=== PATIENT | male | born 1950 | race Caucasian/White ===

== ENCOUNTER 2018-09-23 10:54 | Emergency (ER) | payer OTHER, MEDICARE, SELFPAY ==
[2018-09-23 10:55] VITALS: BP 160/85; PULSE 86; RESP 16; TEMP 36.3; O2SAT 95; BMI 29.5
--- NOTE | 2018-09-23 11:39 | CT_ITS ---
STUDY: CT ABDOMEN AND PELVIS WITHOUT CONTRAST REASON FOR EXAM: Male, 68 years old. Left flank pain. Hematuria. RADIATION DOSAGE (If Supplied By Facility): CTDIvol = ( 17.58 ) mGy, DLP = ( 1045.49 ) mGycm TECHNIQUE: Transaxial images were obtained from the dome of the diaphragm to the symphysis pubis without oral contrast, and without intravenous contrast. Sagittal and coronal images were reconstructed. Individualized dose optimization techniques were used for this CT. COMPARISON: None. FINDINGS: The visualized lung bases are unremarkable. The visualized portions of the heart are within normal limits. Normal liver. Normal gallbladder and extrahepatic biliary system. Normal spleen. Normal pancreas. Normal bilateral adrenal glands. Normal right kidney. There is a mild degree of left hydronephrosis and left hydroureter due to a 3 mm calculus in the midportion of the left ureter. There is also evidence of left perinephric stranding. There is a small hiatal hernia. Normal small intestine. There are multiple colonic diverticula consistent with diverticulosis. The appendix is visualized and appears normal. Normal abdominal aorta. Normal inferior vena cava. There is borderline retroperitoneal lymphadenopathy with enlarged nodes no greater than 10mm in the short axis diameter. Normal urinary bladder. Normal abdominal wall. There are degenerative changes of the visualized lumbar spine. CT/Abdomen/Pelvis without Cont IMPRESSION: 3 mm calculus in the midportion of the left ureter causing left-sided hydronephrosis and hydroureter and left perinephric stranding. Electronically Signed: Douglas Brooks, at 12:51 EST , Service support ,
--- NOTE | 2018-09-23 11:56 | ED.VIS.GEN ---
History of Present Illness Chief Complaint: Flank Pain Informant: Patient Onset: Today - 2-3 hrs Context: Sudden Onset Timing: Continuous Quality: ache, dull. colicky. Location: left flank, radiating into LLQ and groin Current Severity: Mild Maximum Severity: Moderate Worsened by: nothing Relieved by: nothing Associated Symptoms: nausea. dark urine. Narrative: Never had this before. Spontaneous onset of discomfort while he was doing nothing in particular. No history of kidney stones. No lightheadedness or syncope. Back pain started first, then started feeling achy in his left abdomen as well. - Past Medical History (1) Hypertension Status: Chronic (2) Benign prostatic hyperplasia Status: Chronic Past Medical History - Allergies and Home Meds Allergies/Adverse Reactions: Allergies Sulfa (Sulfonamide Antibiotics) Allergy (Verified 09/23/18 10:57) Rash Primary Care Physician: Raghav Merlos,Out of [Primary Care Provider] - Surgical History: no surgical history Lives: Spouse/ Significant Other Smoking Status: Never smoker Review of Systems General: Denies: Chills, Fever, Sweats Eyes: Denies: Visual changes - bilaterally, Diplopia ENT: Denies: Rhinorrhea, Sore throat Cardiovascular: Denies: Chest pain, Palpitations Respiratory: Denies: Dyspnea, Cough, Dyspnea on exertion Gastrointestinal: Reports: Abdominal pain, Nausea. Denies: Vomiting, Diarrhea, Melena, Hematochezia Genitourinary: Denies: Dysuria, Hematuria, Frequency Musculoskeletal: Reports: Back pain. Denies: Extremity Pain Skin: Denies: Rash, Wounds Neurological: Denies: Headache, Weakness, Numbness Physical Exam Vital Signs/Narrative: Vital Signs Temp Pulse Resp BP Pulse Ox 09/23/18 10:55 97.3 F L 86 16 160/85 H 95 Inital Vital Signs reviewed: Yes General: Well nourished, Well developed, No Acute Distress - Well-appearing, NAD Head: Normocephalic, Atraumatic Eyes: Perrl, EOMI ENT: Moist mucous membranes, No rhinorrhea Neck: Supple, Nontender Cardiovascular: Regular rate, Regular rhythm, No murmurs Respiratory: No distress, CTA bilaterally, Chest nontender Abdomen: Soft, Nondistended, Normal bowel sounds, Tender - Mild, left lower quadrant and left mid abdomen Back: Normal Inspection, CVA tenderness - Mild left only, - - No rash Extremities: Nontender, No edema Skin: Normal color, No rash. Negative for: No Trauma Neurological: Alert, Oriented x3, Cranial nerves II-XII grossly intact, Normal Strength, Normal Sensation, Normal Gait Psychological: Normal affect, Normal Mood Diagnostic/Tx/Re-eval Impressions Abdomen/Pelvis CT 09/23/18 11:39 IMPRESSION: 3 mm calculus in the midportion of the left ureter causing left-sided hydronephrosis and hydroureter and left perinephric stranding. Electronically Signed: Douglas Gamboaenoch, at 12:51 EST , Service support , 09/23/18 11:39 Abdomen/Pelvis without Cont [CT] Stat Laboratory Results 09/23/18 12:25 Urine Color Angela Urine Clarity Cloudy Urine pH 5.0 Ur Specific Williamson 1.020 Urine Protein 100 H Urine Glucose (UA) Normal Urine Ketones 5 H Urine Occult Blood 250 H Urine Nitrite Positive H Urine Bilirubin Negative Urine Urobilinogen Normal Ur Leukocyte Esterase 25 H Urine RBC > 100 SEEN Urine WBC 0-5 SEEN Ur Squamous Epith Cells 0-5 SEEN Amorphous Sediment 2+ Urine Bacteria 2+ Urine Mucus 0 SEEN - Medical Decision Making CT shows a 3 mm mid ureteral stone, no sign of aortic acute pathology/catastrophe. He was reassured. No signs of obvious infection although nitrite was positive on the urinalysis. Culture will be added, and although he does not have any significant pyuria compared with the significant amount of microscopic hematuria present, I will place him on antibiotic since I do not have a culture back. He declined any analgesics initially but then agreed to take ibuprofen and Zofran. Will give him prescriptions to use as needed, expectant management indicated. Sent home with strainers and follow-up if he does not pass the stone within a week or so. We also discussed reasons to return to the ER. ED Disposition - Plan for ED Patient: Disposition: Home or Assisted Living Diagnosis: Ureterolithiasis, Renal colic on left side Instructions: ED Stone Renal W Colic Prescriptions: Hydrocodone Bitart/Apap 5-325 [[facility] 5MG-325MG] 1 tab PO Q4H PRN PRN 2 Days #10 tab PRN Reason: Pain Ondansetron [Zofran] 8 mg PO Q8H PRN PRN #12 tab PRN Reason: Nausea Cephalexin [Keflex] 500 mg PO TID #21 cap Referrals: Sterling Parker MD [STAFF PHYSICIAN] - 1 Week if not improving
[2018-09-23] MEDS: Ondansetron ODT 4 MG Tablet 8 MG PO (12:21)
[2018-09-23 12:33] LABS: Mucous, Urine 0 SEEN /hpf (<or=2+)
[2018-09-23 12:37] LABS: Color, Urine Amber (Yellow); Glucose, Dipstick Normal (Normal); Ketone-Dipstick 5 mg/dl (Negative); Leukocyte Esterase-Dipstick 25 /ul (Negative); Nitrite-Dipstick Positive (Negative); Occult Blood-Urine 250 /ul (Negative); Protein-Dipstick 100 mg/dl (Negative); Urine Bilirubin Dipstick Negative (Negative); Urine Clarity Cloudy (Clear); Urine Urobilinogen Normal (Normal)
[2018-09-23] MEDS: Ibuprofen 600 MG Tablet PO (12:45)
[2018-09-23 12:49] LABS: Red Blood Cells-Urine > 100 SEEN /hpf (0-5)
[2018-09-23 12:53] LABS: Amorphous Sediment 2+; Bacteria 2+ /hpf (None Seen); Squamous Epithelial Cells - UA 0-5 SEEN /hpf (0-5); White Blood Cells 0-5 SEEN /hpf (0-5)
[2018-09-23 13:16] VITALS: BP 137/79; PULSE 74; RESP 16; O2SAT 96
[2018-09-23 13:38] VITALS: BP 137/79; PULSE 74; RESP 16; O2SAT 96
== END 2018-09-23 13:56 | disposition home or self-care (01) ==
PROVIDERS: Emergency Provider Emergency Medicine
DX: N13.2 Hydronephrosis with renal and ureteral calculous obstruction (principal); I10 Essential (primary) hypertension; N40.0 Benign prostatic hyperplasia without lower urinary tract symptoms
CPT/HCPCS: 74176; 81001; 87086; 87088; 99283

== ENCOUNTER 2018-10-24 20:39 | Emergency (ER) | payer OTHER, MEDICARE, SELFPAY ==
[2018-10-24 20:39] VITALS: BP 139/92; PULSE 84; RESP 16; TEMP 37.1; O2SAT 94; BMI 29.7
--- NOTE | 2018-10-24 20:50 | RAD_ITS ---
STUDY: X-RAY - RIGHT KNEE REASON FOR EXAM: Male, 68 years old. Knee pain TECHNIQUE: 3 view(s) of the knee. COMPARISON: None. FINDINGS: There are tricompartmental osteophytes. There are likely small osteochondral bony lesions within the lateral compartment of the knee adjacent to the intercondylar notch. There is mild soft tissue edema. There is mild osteopenia. RAD/Knee 3 Views IMPRESSION: Tricompartmental osteoarthrosis Likely small osteochondral lesions within the lateral compartment of the knee adjacent to the intercondylar notch, further evaluation with CT could be performed Electronically Signed: Cal Lujan, at 21:41 EDT Tel , Service support ,
--- NOTE | 2018-10-24 21:36 | ED.DCSUM_ITS ---
History of Present Illness Chief Complaint: Lower Extremity Injury Detail of Chief Complaint: Medial right knee pain Informant: Patient Onset: Today Context: Sudden Onset Timing: Continuous Quality: Pain medial aspect right knee status post injury Location: Right medial knee Current Severity: Mild Maximum Severity: Moderate Worsened by: Extension and ambulating Relieved by: Rest Associated Symptoms: No paresthesia, anesthesia motor weakness. Narrative: Patient presents with injury to right knee. He had a twisting mechanism injury/near fall. He complains of pain medially. He denies prior injury. He reports pain with movement and ambulation. He denies paresthesia, anesthesia motors. Prior similar symptoms: No Recent Illness/Hospitalization: No - Past Medical History (1) Benign prostatic hyperplasia Status: Chronic (2) Hypertension Status: Chronic Past Medical History - Allergies and Home Meds Allergies/Adverse Reactions: Allergies Sulfa (Sulfonamide Antibiotics) Allergy (Verified 10/24/18 20:42) Rash Primary Care Physician: Raghav Merlos,Out of [Primary Care Provider] - Prior records reviewed: Yes Surgical History: no surgical history Lives: Spouse/ Significant Other Smoking Status: Never smoker Alcohol: None Review of Systems Musculoskeletal: Reports: Extremity Pain - Medial aspect of right knee. Denies: Myalgias, Arthralgias, Neck pain, Back pain, Swelling Skin: Denies: Rash, Abscess Hematologic: Denies: Easy bruising, Easy bleeding Physical Exam Vital Signs/Narrative: Vital Signs Temp Pulse Resp BP Pulse Ox 10/24/18 20:39 98.7 F 84 16 139/92 H 94 Inital Vital Signs reviewed: Yes General: Well nourished, Well developed, No Acute Distress Head: Normocephalic, Atraumatic Eyes: Perrl, EOMI Cardiovascular: Regular rate, Regular rhythm, No murmurs Respiratory: No distress Extremities: No edema, Tenderness - Medial joint tenderness. Varus and valgus stress testing cause him discomfort medially. There is no laxity. Ellen's test is negative. Modified Giovanna's test causes pain medial posterior fossa. He is able to extend 180 degrees. Is able to flex to 100 degrees before experiencing discomfort.. Negative for: Nontender Skin: Normal color, No rash Neurological: Alert, Oriented x3, Cranial nerves II-XII grossly intact, Normal Strength, Normal Sensation. Negative for: Normal Gait Psychological: Normal affect, Normal Mood Diagnostic/Tx/Re-eval Chest X-Ray - ED: Read by ED Physician Three-view x-ray of the right knee was obtained with no evidence of subluxation or dislocation of the patella. There is no fracture noted. There is no effusion noted. There is a floating free body posteriorly noted. - Medical Decision Making Based on patient's history and physical exam suspect medial meniscal injury. Will treat with pain medicine and crutches. He was referred to Dr. Jeffrey Franco who is on-call for orthopedics since he has not seen orthopedist in the past. ED Disposition - Plan for ED Patient: Disposition: Home or Assisted Living Diagnosis: Acute medial meniscus tear of right knee Instructions: ED Meniscal Injury Knee Poss Prescriptions: Hydrocodone Bitart/Apap 5-325 [[place] 5MG-325MG] 1 tab PO Q6H PRN PRN 3 Days #10 tab PRN Reason: Pain Referrals: [facility] Doctor,Out of [Primary Care Provider] - Jeffrey Franco DO [STAFF PHYSICIAN] - 5-7 Days
[2018-10-24 22:05] VITALS: BP 149/87; PULSE 77; RESP 16
== END 2018-10-24 22:06 | disposition home or self-care (01) ==
LOC: ED 21:55
PROVIDERS: Emergency Provider Emergency Medicine
DX: S83.241A Other tear of medial meniscus, current injury, right knee, initial encounter (principal); X50.1XXA Overexertion from prolonged static or awkward postures, initial encounter; Y93.9 Activity, unspecified; Y92.9 Unspecified place or not applicable; I10 Essential (primary) hypertension; N40.0 Benign prostatic hyperplasia without lower urinary tract symptoms; Z79.82 Long term (current) use of aspirin; Z79.899 Other long term (current) drug therapy
CPT/HCPCS: 73562; 99283

== ENCOUNTER → 2022-10-12 | Outpatient (CLI) | payer OTHER, SELFPAY | END | disposition home or self-care (01) | PROVIDERS: PCP Family Medicine; Referring Provider Family Medicine; Visit Provider Family Medicine | DX: R31.9 Hematuria, unspecified (principal) | CPT/HCPCS: 87077; 87086; 87088; 87186 ==

== ENCOUNTER → 2022-11-25 | Outpatient (CLI) | payer MEDICARE, SELFPAY ==
--- NOTE | 2022-11-25 16:34 | US_ITS ---
HISTORY: SCROTAL PAIN-RT TECHNIQUE: Realtime ultrasound of the testicles was performed with grayscale, Color Doppler and spectral Doppler analysis. 110 images. COMPARISON: None. FINDINGS: Right- TESTIS: 2 x 3.1 x 3.4 cm. Homogeneous echotexture with 2 x 3 mm and 3 x 5 mm cysts. Dilated rete testes. COLOR DOPPLER: Normal arterial flow present in the testicle with monophasic waveforms. EPIDIDYMIS: 1.8 x 1.9 x 3.5 cm . 1.7 x 2.3 x 3 cm cyst. [No focal hyperemia. EXTRATESTICULAR CONTENTS: Varicocele noted. Left- TESTIS: 1.7 x 2.9 x 4 cm. Homogeneous echotexture without focal lesion. COLOR DOPPLER: Normal arterial flow present in the testicle with monophasic waveforms. EPIDIDYMIS: 7 x 9 x 9 mm [Normal color Doppler flow pattern in the epididymis. EXTRATESTICULAR CONTENTS: Varicocele noted. US/Testicular with Arterial Flow IMPRESSION: Vascular flow demonstrated to both testicles. Small right testicular cyst. 3 cm right epididymal cyst. Varicoceles. Electronically Signed: Meliza Nelson MD at 11:37 EDT ,
== END | disposition home or self-care (01) ==
LOC: US 16:31
PROVIDERS: PCP Family Medicine; Referring Provider Family Medicine; Visit Provider Family Medicine
DX: N50.82 Scrotal pain (principal)
CPT/HCPCS: 76870; 93976

== ENCOUNTER → 2022-12-15 | Outpatient (CLI) | payer MEDICARE, SELFPAY ==
[2022-12-15 16:46] LABS: PSA,Total - Annual Screen 0.28 ng/mL (0.00-4.00)
== END | disposition home or self-care (01) ==
LOC: LAB 15:41
PROVIDERS: PCP Family Medicine; Referring Provider Urology; Visit Provider Urology
DX: Z12.5 Encounter for screening for malignant neoplasm of prostate (principal)
CPT/HCPCS: 36415; 84153; G0103

== ENCOUNTER → 2023-07-06 | Outpatient (CLI) | payer MEDICARE, SELFPAY ==
[2023-07-06 12:12] LABS: Absolute Lymphocyte Count 1.42 X10^3/uL (0.83-4.51); Absolute Neutrophil Count 2.7 X10^3/uL (2.0-7.7); Basophil# 0.05 X10^3/uL; Eosinophil# 0.15 X10^3/uL; Eosinophils% 3.1 % (0-5); Hematocrit 45.1 % (40-54); Hemoglobin 15.6 g/dL (13.0-16.5); Lymphocyte # 1.42 X10^3/ul (0.83-4.51); Lymphocyte % 29.7 % (19-41); Mean Corp Hgb Conc 34.6 g/dL (32-36); Mean Corpuscular Hgb 33.3 pg (27.0-32.0); Mean Corpuscular Volume 96.4 fL (80-94); Mean Platelet Vol. 11.5 fl (6.2-12.0); Monocyte# 0.41 X10^3/uL; Monocyte% 8.6 % (0-10); NRBC Flagged by Analyzer 0 % (0-5); Neutrophil # 2.74 X10^3/uL (2.7-7.7); Neutrophil % 57.4 % (47-70); Platelet Count 176 K/mm3 (150-450); RBC Distribution Width SD 46.2 fl (35.1-43.9); Red Blood Count 4.68 M/mm3 (4.6-6.2); White Blood Count 4.8 K/mm3 (4.4-11.0)
[2023-07-06 12:38] LABS: Vitamin D,25 Hydroxy 34.5 ng/mL
[2023-07-06 12:42] LABS: AST(SGOT) 46 U/L (15-37); Alanine Aminotransfer ALT/SGPT 79 U/L (16-61); Albumin, Serum 3.8 g/dL (3.2-5.0); Alkaline Phosphatase 81 U/L (45-117); Anion Gap 8 (5-15); BUN 17 mg/dL (7-18); BUN/Creat Ratio 14.8 RATIO (10-20); Calcium,Total 8.9 mg/dL (8.5-10.1); Chloride 106 mmol/L (98-107); Creatinine, Serum 1.15 mg/dL (0.70-1.30); EST Glomerular Filtration Rate 66 mL/min (>60); Est Glom Filt Rate - Afr Amer 80 mL/min (>60); Glucose 112 mg/dL (74-106); Potassium 3.3 mmol/L (3.5-5.1); Protein, Total 7.8 g/dL (6.4-8.2); Sodium Level 141 mmol/L (136-145)
== END | disposition home or self-care (01) ==
LOC: BFHLAB 10:17
PROVIDERS: PCP Family Medicine; Visit Provider Family Medicine
DX: I10 Essential (primary) hypertension (principal); R42 Dizziness and giddiness; E55.9 Vitamin D deficiency, unspecified
CPT/HCPCS: 36415; 80053; 82306; 85025

== ENCOUNTER → 2023-07-16 | Outpatient (CLI) | payer MEDICARE, SELFPAY ==
--- NOTE | 2023-07-16 10:06 | US_ITS ---
PROCEDURE: ABDOMINAL ULTRASOUND, RIGHT UPPER QUADRANT COMPARISONS: CT abdomen and pelvis 09/23/2018. CLINICAL INDICATION: ELEVATED ENZYMES TECHNIQUE: Real-time coronado-scale abdominal ultrasound. Limited color Doppler evaluation is performed. FINDINGS: Liver: Normal in size with diffusely increased echotexture. Appropriate hepatopetal flow is present in the main portal vein. Gallbladder: Normal wall thickness. No gallstones. Sonographic Kohli''s sign is absent. No pericholecystic fluid is present. Biliary Tree: Nondilated. Common bile duct measures 3 mm. Pancreas: Obscured by bowel gas. Right kidney: Normal in size and echogenicity. Prominent extrarenal pelvis as on prior CT, no hydronephrosis or stones. The right kidney measures 13.2 cm in long axis. No free fluid. US/Liver IMPRESSION: Diffuse fatty infiltration of the liver. No acute findings. Electronically Signed: Carroll Glaser MD at 18:14 EST ,
== END | disposition home or self-care (01) ==
LOC: US 10:03
PROVIDERS: PCP Family Medicine; Referring Provider Family Medicine; Visit Provider Family Medicine
DX: R74.8 Abnormal levels of other serum enzymes (principal)
CPT/HCPCS: 76705

== ENCOUNTER → 2023-11-09 | Outpatient (CLI) | payer MEDICARE, SELFPAY ==
[2023-11-09 13:11] LABS: AST(SGOT) 49 U/L (15-37); Alanine Aminotransfer ALT/SGPT 68 U/L (16-61); Albumin, Serum 3.7 g/dL (3.2-5.0); Alkaline Phosphatase 84 U/L (45-117); Bilirubin, Direct 0.22 mg/dL (0.00-0.30); Cholesterol 159 mg/dL (200); GGTP 81 U/L (15-85); Globulin 3.8 g/dL (2.2-4.2); High Density Lipoprotein 61 mg/dL; Protein, Total 7.5 g/dL (6.4-8.2); Triglycerides 117 mg/dL; Uric Acid 5.2 mg/dL (3.5-7.2); Very Low Density Lipoprotein 23 mg/dL (5-40)
== END | disposition home or self-care (01) ==
LOC: LAB.FUTURE 10:55
PROVIDERS: PCP Family Medicine; Referring Provider Family Medicine; Visit Provider Family Medicine
DX: R74.8 Abnormal levels of other serum enzymes (principal)
CPT/HCPCS: 36415; 80061; 80076; 82977; 84550

== ENCOUNTER 2024-08-19 02:20 | Emergency (ER) | payer OTHER, SELFPAY ==
[2024-08-19 02:21] VITALS: BP 146/76; PULSE 76; RESP 20; TEMP 36.4; O2SAT 97; BMI 29.5
--- NOTE | 2024-08-19 02:25 | EKG12_ITS ---
Test Reason : CP Blood Pressure : */* mmHG Vent. Rate : 68 BPM Atrial Rate : 68 BPM P-R Int : 160 ms QRS Dur : 120 ms QT Int : 426 ms P-R-T Axes : 36 0 0 degrees QTcB Int : 452 ms Normal sinus rhythm Right bundle branch block Minimal voltage criteria for LVH, may be normal variant ( R in aVL ) Abnormal ECG Confirmed by JOYCE MARTIN MD ([id number]), editor managing director CODY PALMA ([id number]) on 08/21/2024 7:06:20 AM Referred By: BB Confirmed By: JOYCE MARTIN MD
--- NOTE | 2024-08-19 02:33 | ED.VIS.CHEST ---
HPI History of Present Illness Chief Complaint: Chest Pain Informant: patient and spouse/S.O. Narrative Narrative: 74-year-old male presents about 2:30 AM for chest pain that started around 1 AM upon lying down to sleep. He states he felt like heaviness across his substernal, no radiation, no other associated symptoms such as diaphoresis, dyspnea, palpitations, nausea, near-syncope or syncope. Nonpleuritic, nonexertional. He states upon being upright the discomfort gradually resolved. He has been having off-and-on chest pain for the last several weeks, states he saw his doctor just this past day, he was started on omeprazole and took the first 1, and the patient states he was told if his chest pain ever recurs or gets worse he should go right to the emergency department, so he is here to make sure that he is okay. At the current moment he is asymptomatic and states that the chest discomfort only lasted a short time. He is a non-smoker. He states he had a stress test 5 years ago or so and it was okay. No known history of heart problems. He states his doctor told him he had a right bundle branch block, duration unknown, and he states that his doctor is trying to set him up for an MRI. [facility] Medical History (Updated 08/19/24 @ 03:[address] Andi Sher MD) Hypertension Benign prostatic hyperplasia Hearing loss, left Hearing loss, right Hypertension Cataract Home Medications ?Medication ?Instructions ?Recorded ?Last Taken ?Type allopurinol 300 mg tablet 300 mg PO DAILY 09/23/18 Unknown History aspirin 81 mg tablet,delayed 81 mg PO DAILY 09/23/18 Unknown History release (Aspir-) finasteride 5 mg tablet 5 mg PO DAILY 09/23/18 Unknown History lisinopril 20 1 tab PO DAILY 09/23/18 Unknown History mg-hydrochlorothiazide 12.5 mg tablet multivitamin (Daily Value tablet) 1 ea PO DAILY 09/23/18 Unknown History ondansetron HCl 8 mg tablet 8 mg PO Q8H PRN PRN Nausea #12 tabs 09/23/18 Unknown Rx tamsulosin 0.4 mg capsule (Flomax) 0.8 mg PO QHS 09/23/18 Unknown History vitamin B complex (Vitamins B 1 ea PO DAILY 09/23/18 Unknown History Complex capsule) Allergy/AdvReac Type Severity Reaction Status Date / Time Sulfa (Sulfonamide Allergy stomach Verified 08/19/24 02:26 Antibiotics) ache Social History Smoking Status: Never smoker ROS ROS ED Constitutional Constitutional ED: Denies chills or fever(s) Eyes Eyes: Denies change in vision or diplopia ENT ENT ED: Denies rhinorrhea or sore throat Cardiovascular Cardiovascular: Reports as per HPI and chest pain; Denies palpitations Respiratory/Chest Respiratory/Chest: Denies cough or dyspnea Gastrointestinal Gastrointestinal: Denies abdominal pain, diarrhea, nausea or vomiting Genitourinary Genitourinary ED: Denies dysuria or hematuria Musculoskeletal Musculoskeletal: Denies back pain or neck pain Integumentary Denies abscess or rash Neurologic Neurologic: Denies headache(s), paresthesias or weakness Psychiatric Psychiatric: Denies anxiety or suicidal thoughts EXAM Physical Exam Const Vital Signs: 08/19/24 02:21 08/19/24 02:25 08/19/24 02:34 Temperature 97.5 F L Temperature Source Oral Pulse Rate 76 Respiratory Rate 20 H Respiratory Effort Normal Non-Labored Blood Pressure 146/76 H Blood Pressure Mean 99 Pulse Ox 97 Oxygen Delivery Method Room Air Room Air 08/19/24 03:20 08/19/24 04:00 Temperature Temperature Source Pulse Rate 71 66 Respiratory Rate 17 17 Respiratory Effort Blood Pressure 125/76 H 120/68 Blood Pressure Mean 92 85 Pulse Ox 95 97 Oxygen Delivery Method Room Air Room Air Positive well nourished and well developed General Appearance ED: well developed and NAD HEENT Reports moist mucous membranes normocephalic and atraumatic Eyes PERRL and EOMs intact bilaterally Neck full ROM and supple Resp normal respiratory effort and clear to auscultation bilaterally Cardio regular rate, regular rhythm and no murmurs GI non-tender and non-distended Auscultation: normoactive bowel sounds Palpation: soft Back/Spine no CVA tenderness General Back: other FROM Extremity normal to inspection General Extremety ED: Negative for edema, pulses abnormal or tenderness General Extremity: Negative for edema or pulses abnormal Neuro oriented x3, CN's II-XII intact bilaterally and no sensory deficits noted Sensorium / Orientation: awake and alert Motor Exam: strength 5/5 throughout Skin no rashes or lesions noted and no wounds Heart Score History: Slightly/Non-Suspicious ECG: Nonspecific Repolarization Age: >/= 65 years Risk Factors: 1 or 2 Risk Factors Troponin: </= Normal Limit Score: 4 MDM MDM MDM Narrative Medical decision making narrative: Although I do not have an available prior EKG to compare this to, his current EKG does show a right bundle branch block and no acute injury pattern. His history is more consistent with GI etiology than it is cardiac, in my judgment. I think this is a low risk episode with regards to risk of this being unstable angina. He currently is pain-free. His initial troponin is 7, but given that he just had the episode a little over an hour prior to presentation, a second troponin 2 hours later according to this hospital's protocol is indicated. In the meantime his chest x-ray 2 views of my interpretation is normal, does not appear to show widened mediastinum or focal unilateral abnormality. He is not anemic and the rest of his blood work is unremarkable except for mild prerenal azotemia and mild hypokalemia, both incidental in my opinion. Patient is comfortable with waiting for repeat troponin. His repeat troponin came back at 7 which is identical to his initial measurement for a delta of 0. Patient remains asymptomatic with normal vital signs. Stable for discharge. Lab Data Attestation: I reviewed the patient's lab results. Labs: Laboratory Results - last 24 hr 08/19/24 08/19/24 02:25 04:26 WBC 7.0 RBC 4.62 Hgb 15.6 Hct 43.9 MCV 95.0 H MCH 33.8 H MCHC 35.5 RDW Std Deviation 45.9 H RDW Coeff of Tirso 13.2 Plt Count 166 MPV 10.6 Immature Gran % (Auto) 0.300 Neut % (Auto) 49.7 Lymph % (Auto) 36.3 Hendricks % (Auto) 9.4 Eos % (Auto) 3.3 Baso % (Auto) 1.0 Absolute Neuts (auto) 3.5 Absolute Lymphs (auto) 2.54 Nucleated RBC % 0 Sodium 140 Potassium 3.3 L Chloride 105 Carbon Dioxide 28.0 Anion Gap 7 BUN 21 H Creatinine 1.22 Estim Creat Clear Calc 66.30 Est GFR (MDRD) Af Amer 74 Est GFR (MDRD) Non-Af 61 BUN/Creatinine Ratio 17.2 Glucose 113 H Calcium 9.3 Troponin I High Sens 7 7 Radiography Diagnostic Testing: Clinical Impression(s) from Imaging Studies Chest X-Ray 08/19/24 02:40 IMPRESSION: No acute cardiopulmonary process identified. Reading Location: [facility] Rhythm Strip Rhythm Strip: Sinus Rhythm Rate: 68 Ectopy: None EKG Initial EKG: Attestation: I personally reviewed and interpreted this EKG as follows: Interpretation: Sinus Rhythm, No Acute Injury Pattern, RBBB and Non-Specific ST Changes (ant-sept) Prior EKG tracings: not available for review Prior: No Prior Discharge Plan Triage Chief Complaint: Chest Pain ED Provider: Andi Sher Dx/Rx/DC Orders Clinical Impression: Non-cardiac chest pain Instructions: ED Chest Pain, Noncardiac Prescriptions: Continued multivitamin [Daily Value] 1 EACH tablet 1 ea PO DAILY lisinopril-hydrochlorothiazide 1 EACH tablet 1 tab PO DAILY Patient Comments: TAKE 1 TABLET BY MOUTH EVERY DAY aspirin [Aspir-81] 81 MG tablet,delayed release (DR/EC) 81 mg PO DAILY tamsulosin [Flomax] 0.4 MG capsule 0.8 mg PO QHS allopurinol 300 MG tablet 300 mg PO DAILY Patient Comments: TAKE 1 TABLET DAILY. finasteride 5 MG tablet 5 mg PO DAILY vitamin B complex [Vitamins B Complex] 1 EACH capsule 1 ea PO DAILY ondansetron HCl 8 MG tablet 8 mg PO Q8H PRN PRN (Reason: Nausea) Qty: 12 0RF Primary Care Provider: Alexis Chatterjee Referrals: Alexis Chatterjee DO [Primary Care Provider] - (Call for follow-up information) Print Language: Croatian Disposition Disposition: Home, Self Care
[2024-08-19 02:34] LABS: Absolute Lymphocyte Count 2.54 X10^3/uL (0.83-4.51); Absolute Neutrophil Count 3.5 X10^3/uL (2.0-7.7); Basophil# 0.07 X10^3/uL; Eosinophil# 0.23 X10^3/uL; Eosinophils% 3.3 % (0-5); Hematocrit 43.9 % (40-54); Hemoglobin 15.6 g/dL (13.0-16.5); Lymphocyte # 2.54 X10^3/ul (0.83-4.51); Lymphocyte % 36.3 % (19-41); Mean Corp Hgb Conc 35.5 g/dL (32-36); Mean Corpuscular Hgb 33.8 pg (27.0-32.0); Mean Platelet Vol. 10.6 fl (6.2-12.0); Monocyte# 0.66 X10^3/uL; Monocyte% 9.4 % (0-10); NRBC Flagged by Analyzer 0 % (0-5); Neutrophil # 3.48 X10^3/uL (2.7-7.7); Neutrophil % 49.7 % (47-70); Platelet Count 166 K/mm3 (150-450); RBC Distribution Width CV 13.2 % (11.6-14.6); RBC Distribution Width SD 45.9 fl (35.1-43.9); Red Blood Count 4.62 M/mm3 (4.6-6.2)
--- NOTE | 2024-08-19 02:40 | RAD_ITS ---
PROCEDURE: CHEST PA AND LATERAL REASON FOR EXAM: Dizziness. Chest pain. Cough. Tightness TECHNIQUE: Frontal and lateral views of the chest. COMPARISON: None. FINDINGS: Lungs are well aerated. Trace atelectasis within the left lung base. No focal airspace consolidation, pneumothorax or pleural effusion is seen. Heart size and great vessels are within normal limits. The osseous thorax appears intact. Slight levocurvature involving the upper lumbar spine. Spondylotic changes involving the midthoracic spine. EKG wires overlie the chest. RAD/Chest PA and Lateral IMPRESSION: No acute cardiopulmonary process identified. Reading Location: [facility]
[2024-08-19 02:52] LABS: Anion Gap 7 (5-15); BUN 21 mg/dL (7-18); BUN/Creat Ratio 17.2 RATIO (10-20); Calcium,Total 9.3 mg/dL (8.5-10.1); Chloride 105 mmol/L (98-107); Creatinine, Serum 1.22 mg/dL (0.70-1.30); EST Glomerular Filtration Rate 61 mL/min (>60); Est Glom Filt Rate - Afr Amer 74 mL/min (>60); Glucose 113 mg/dL (74-106); Potassium 3.3 mmol/L (3.5-5.1); Sodium Level 140 mmol/L (136-145); Troponin-I HS 7 pg/mL (3.0-78.0)
[2024-08-19 03:20] VITALS: BP 125/76; PULSE 71; RESP 17; O2SAT 95
[2024-08-19 04:00] VITALS: BP 120/68; PULSE 66; RESP 17; O2SAT 97
[2024-08-19 05:00] VITALS: BP 132/78; PULSE 73; RESP 22; TEMP 36.2; O2SAT 94
[2024-08-19 05:00] LABS: Troponin-I HS 7 pg/mL (3.0-78.0)
== END 2024-08-19 05:20 | disposition home or self-care (01) ==
PROVIDERS: Emergency Provider Emergency Medicine; PCP Family Medicine; Visit Provider Emergency Medicine
DX: R07.89 Other chest pain (principal); E87.6 Hypokalemia; I45.10 Unspecified right bundle-branch block; I10 Essential (primary) hypertension; Z79.899 Other long term (current) drug therapy
CPT/HCPCS: 71046; 80048; 84484; 85025; 93005; 99284; A4216

== ENCOUNTER → 2024-09-04 | Outpatient (CLI) | payer MEDICARE, SELFPAY ==
--- NOTE | 2024-09-04 10:06 | STRESSREP_ITS ---
Stress Test Report Date: 09/04/2024 Procedure: Pharmacologic stress nuclear imaging study Indications: Chest pain Consent: Per the patient Procedure: The patient underwent pharmacologic (Regadenoson 0.4mg ) evaluation with a peak heart rate of 116 beats per minute (80%predicted maximal heart rate) and a peak blood pressure of 130/88 mmHg. The baseline ECG demonstrated sinus rhythm with right bundle branch block. The peak pharmacologic ECG demonstrated no ischemic changes. There were no cardiac dysrhythmias pretest, during pharmacologic infusion, or recovery. There was no complaint of chest discomfort during pharmacologic infusion or recovery. The patient was injected with 14.2 millicuries of technetium 99m Cardiolite and subsequently rest SPECT Cardiolite nuclear imaging was obtained in the horizontal long, vertical long, and short axis views. The patient underwent pharmacologic (Regadenoson) evaluation. The patient was injected with 44.3 millicuries of technetium 99m Cardiolite and subsequently stress SPECT Cardiolite nuclear imaging was obtained in the horizontal long, vertical long, and short axis views. A gated Cardiolite study at peak stress was obtained. The examination was stopped secondary to completion of protocol. Rest and stress SPECT Cardiolite nuclear imaging status post realignment, normalization, and attenuation correction demonstrate no fixed or reversible perfusion defects. There is end systolic thickening and brightening. The gated Cardiolite study demonstrates myocardial thickening and inward wall motion. The reported LVEF is 73%. Impression: 1. Pharmacologic (Regadenoson) evaluation 2. Peak pharmacologic ECG with no ischemic changes. 3. There were no cardiac dysrhythmias pretest, during pharmacologic infusion, or recovery. 5. Rest and stress SPECT Cardiolite nuclear imaging demonstrate relative uniform tracer uptake and myocardial perfusion appearing within normal limits. 6. The gated Cardiolite study reports an LVEF of 73%. This note was generated with [employer] software. It may contain incorrect words, spelling, and punctuation that were not noted in checking the note before signing.
== END | disposition home or self-care (01) ==
PROVIDERS: PCP Family Medicine; Referring Provider Family Medicine; Visit Provider Family Medicine
DX: R94.31 Abnormal electrocardiogram [ECG] [EKG] (principal); R07.9 Chest pain, unspecified
CPT/HCPCS: 78452; 93017; A9500; A4216; J2785

== ENCOUNTER → 2025-05-22 | Outpatient (CLI) | payer MEDICARE, SELFPAY ==
--- NOTE | 2025-05-22 09:41 | US_ITS ---
PROCEDURE: ABDOMEN LIMITED 05/22/2025 REASON FOR EXAM: SWELLING TECHNIQUE: Procedure Code: USABDL Modality: US Procedure: ABDOMEN LIMITED COMPARISON: None FINDINGS: Liver: Diffusely echogenic suggesting fatty infiltration. The liver measures 17.8 cm. Gallbladder: No stones, sludge, wall thickening or tenderness. Common bile duct: Normal measuring 6 mm. . Pancreas: Obscured by bowel gas. Other: Visualized portions of the right kidney are unremarkable. No right upper quadrant ascites. US/Abdomen Limited IMPRESSION: Fatty infiltration of the liver. Mild hepatomegaly. Reading Location: [id number]
== END | disposition home or self-care (01) ==
LOC: US 09:37
PROVIDERS: PCP Family Medicine; Referring Provider Nurse Practitioner Family; Visit Provider Nurse Practitioner Family
DX: R19.01 Right upper quadrant abdominal swelling, mass and lump (principal)
CPT/HCPCS: 76705